=== PATIENT | female | born 1945 | race Caucasian/White ===

== ENCOUNTER 2024-05-17 23:01 | Inpatient (IN) | payer MEDICARE ==
[2024-05-17] MEDS ORDERED: Dextrose 5% in Water 1,000 ML IV PRN (23:30)
[2024-05-17] MEDS ORDERED: Dextrose 50% Abboject 50 ML SYRINGE SLOW IVP PRN (23:30)
[2024-05-17] MEDS ORDERED: Glucagon 1 MG/ML KIT IM PRN (23:30)
[2024-05-17] MEDS ORDERED: Acetaminophen 650 MG Suppository PR PRN (23:30)
[2024-05-17] MEDS ORDERED: Ondansetron PF 4 MG/2 ML Vial IVP PRN (23:30)
[2024-05-17] MEDS ORDERED: Calcium Carbonate 500 MG ChewTAB PO PRN (23:30)
[2024-05-17 23:48] VITALS: BMI 27.4
[2024-05-17] MEDS ORDERED: Dicyclomine 10 MG CAP PO PRN (23:53)
[2024-05-18] MEDS: Dextrose 5%-Lactated Ringers 1,000 ML IV SCH (00:20)
[2024-05-18] MEDS: traMADol HCl 50 MG TAB PO PRN (00:20)
[2024-05-18] MEDS: cefTRIAXone\\ROCEPHIN 1 GM in Sodium Chloride 0.9% 100 ML IVPB SCH (02:55)
[2024-05-18] MEDS: Carvedilol 6.25 MG TAB PO SCH ×2 (02:58→08:34)
[2024-05-18] MEDS: Acetaminophen 325 MG TAB PO PRN (03:55)
[2024-05-18 05:06] LABS: ALT (SGPT) 14 U/L (8-55); AST (SGOT) 28 U/L (5-34); Albumin 3.2 g/dL (3.4-4.8); Alkaline Phosphatase 54 U/L (40-110); Anion Gap 18 mmol/L (10-20); BUN (Urea Nitrogen) 18 mg/dL (9.8-20.1); Bilirubin, Total 0.3 mg/dL (0.2-1.2); Calc. Creatinine Clearance 44 mL/min (70-130); Carbon Dioxide 19 mmol/L (23-31); Chloride 105 mmol/L (98-107); Estimated GFR 61; Globulin 2.4 g/dL (2.4-3.5); Glucose 170 mg/dL (83-110); Magnesium 1.7 mg/dL (1.6-2.6); Potassium 3.5 mmol/L (3.5-5.1); Protein, Total 5.6 g/dL (5.8-8.1); Sodium 138 mmol/L (136-145)
[2024-05-18] MEDS ORDERED: Artificial Tear Ophth Sol 15 ML BOT EA EYE PRN (07:01)
[2024-05-18] MEDS ORDERED: Zolpidem Tartrate 5 MG TAB PO PRN (07:01)
[2024-05-18] MEDS ORDERED: Benzonatate 100 MG CAP PO PRN (07:01)
[2024-05-18] MEDS ORDERED: diphenhydrAMINE 25 MG CAP PO PRN (07:01)
[2024-05-18] MEDS ORDERED: Moisturizing Cream (Eucerin) 113 GM JAR TOP PRN (07:01)
[2024-05-18] MEDS ORDERED: Benzocaine/Menthol 1 LOZ LOZ PO PRN (07:01)
[2024-05-18] MEDS ORDERED: Acetaminophen 500 MG TAB PO PRN (07:01)
[2024-05-18 07:31] LABS: #Basophils 0.02 10x3/uL (0.0-0.2); #Eosinophils 0.05 10x3/uL (0.0-0.5); #Neutrophils 4.93 10x3/uL (1.5-8.4); %Basophils 0.3 % (0.0-2.0); %Eosinophils 0.8 % (0.0-6.0); %Lymphocytes 16.6 % (18.0-47.0); %Monocytes 7.6 % (0.0-10.0); %Neutrophils 74.5 % (40.0-75.0); Hematocrit 30.8 % (34.9-44.5); Hemoglobin 9.9 g/dL (12.0-15.5); Mean Corpuscular HGB CONC 32.1 g/dL (32.0-36.0); Mean Corpuscular Hemoglobin 30.2 pg (27.0-33.0); Mean Corpuscular Volume 93.9 fL (81.6-98.3); Mean Platelet Volume 9.5 fL (7.4-10.4); Platelet Count 234 10x3/uL (150-450); RBC Distribution Width 13.2 % (11.5-14.5); Red Blood Cell (RBC) Count 3.28 10x6/uL (3.90-5.03); White Blood Cell (WBC) Count 6.6 10x3/uL (3.5-10.5)
[2024-05-18] MEDS: Levothyroxine Sodium 50 MCG TAB PO SCH (07:38)
[2024-05-18] MEDS: Potassium Chloride 20 MEQ TAB PO SCH (07:38)
[2024-05-18] MEDS: Losartan 25 MG TAB PO SCH (08:34)
[2024-05-18] MEDS: FLUoxetine HCl 10 MG CAP PO SCH (08:34)
[2024-05-18] MEDS: Pantoprazole DR 40 MG TAB PO SCH (08:35)
[2024-05-18] MEDS: Clopidogrel Bisulfate 75 MG TAB PO SCH (08:36)
[2024-05-18] MEDS: Vit A,C & E/Lutein/Minerals Tablet PO SCH (08:36)
[2024-05-18] MEDS: glyBURIDE 2.5 MG TAB PO SCH (08:36)
[2024-05-18] MEDS: Aspirin 81 mg Enteric Coated Tablet PO SCH (08:36)
[2024-05-18] MEDS: Gabapentin 300 MG CAP PO SCH (08:37)
[2024-05-18] MEDS ORDERED: Famotidine/PF 20 mg/2ml Vial SLOW IVP SCH (09:00)
[2024-05-18] MEDS: FLU (Fluad Triv) TS24-25 (65UP)/MF59C/PF 45 MCG/0.5 ML Syringe IM ONE (13:21)
[2024-05-18] MEDS: Amlodipine 5 MG TAB PO SCH (13:22)
[2024-05-18 13:35] LABS: Phosphorus 2.2 mg/dL (2.3-4.7)
[2024-05-18] MEDS: Insulin Lispro 100 UNIT/ML 10 ML VIAL SC PRN (16:12)
[2024-05-18] MEDS: Enoxaparin 40 MG (0.4 mL) SYRINGE SC SCH (20:37)
[2024-05-18] MEDS: Atorvastatin Calcium 20 MG TAB PO SCH (20:38)
[2024-05-18] MEDS: Lactated Ringer's 500 ML IV SCH (20:39)
[2024-05-18] MEDS: PHOS-NAK 1 PKT PACK PO SCH (20:40)
[2024-05-19 05:06] VITALS: TEMP 98.3
[2024-05-19] MEDS: glyBURIDE 5 MG TAB PO SCH (08:37)
[2024-05-19] MEDS: Amlodipine 5 MG TAB PO SCH (08:37)
[2024-05-19 10:11] VITALS: BP 172/97
== END 2024-05-19 13:40 | disposition home or self-care (01) | DRG 392 ==
LOC: CSHTELE 23:01
PROVIDERS: ADMIT Student in an Organized Health Care Education/Training Program; ATTEND Family Medicine
DX: A08.4 Viral intestinal infection, unspecified (principal); E87.20 Acidosis, unspecified; N39.0 Urinary tract infection, site not specified; I10 Essential (primary) hypertension; I25.10 Atherosclerotic heart disease of native coronary artery without angina pectoris; E78.5 Hyperlipidemia, unspecified; E03.9 Hypothyroidism, unspecified; Z90.49 Acquired absence of other specified parts of digestive tract; Z90.710 Acquired absence of both cervix and uterus; Z88.8 Allergy status to other drugs, medicaments and biological substances; R53.81 Other malaise; I16.0 Hypertensive urgency; E11.40 Type 2 diabetes mellitus with diabetic neuropathy, unspecified
CPT/HCPCS: 36415; 36416; 80053; 82010; 83605; 83735; 84100; 84443; 85025; J0696; J1650; J1815; J7120